=== PATIENT | female | born 1970 | race Two or more races ===

== ENCOUNTER 2020-08-04 18:23 | Emergency (ER) | payer OTHER ==
[~2020-08-04] VITALS: Ht 165.1 cm; Wt 92.5 kg
[2020-08-04] MEDS ORDERED: HYDROCHLOROTHIA25 MG PO (18:46)
[2020-08-04] MEDS ORDERED: ISOSORBIDE DINI30 MG PO (18:46)
[2020-08-04] MEDS ORDERED: COZAAR100 MG PO (18:47)
[2020-08-04] MEDS ORDERED: TOPROL XL50 M1 PO (18:47)
[2020-08-04] MEDS ORDERED: ADULT LOW DOSE81 M1 PO (18:48)
[2020-08-04] MEDS ORDERED: AMLODIPINE-OLM1 EAC2 PO (18:48)
[2020-08-04] MEDS ORDERED: ABATRON LIQUID474 ML PO (18:49)
== END 2020-08-05 17:00 | disposition home or self-care (01) ==
LOC: ER 18:23 → EDBD 18:41 → ER 08-05 17:00
DX: N93.8 Other specified abnormal uterine and vaginal bleeding (principal); D50.0 Iron deficiency anemia secondary to blood loss (chronic)
CPT/HCPCS: 36430 ×2; 76830; 86904 ×2; 86922 ×2; P9016 ×2